=== PATIENT | female | born 1965 | race African-American/Black ===

== ENCOUNTER 2017-11-12 13:03 | Emergency (ER) | payer OTHER ==
[2017-11-12] MEDS ORDERED: Morphine 4 MG/ML VIAL ONE (13:36)
[2017-11-12] MEDS ORDERED: Ondansetron HCl/PF 4 MG/2 ML Vial ONE (13:36)
[2017-11-12 13:39] LABS: #Basophils 0.1 thou/uL (0.0-0.2); #Eosinphils 0.4 thou/uL (0.0-0.7); #Monocytes 0.3 thou/uL (0.11-0.59); #Neutrophils 3.3 thou/uL (1.40-6.50); %Basophils 1.3 % (0.0-1.0); %Lymphocytes 42.4 % (21.0-51.0); %Monocytes 4.6 % (0.0-10.0); %Neutrophils 46.7 % (42.0-75.0); Mean Corpuscular HGB CONC 33.9 g/dL (32.0-36.0); Mean Corpuscular Hemoglobin 30.5 pg (27.0-31.0); Mean Corpuscular Volume 90.1 fl (81.0-99.0); Mean Platelet Volume 7.4 fL (7.4-10.4); Platelet Count 287 thou/uL (130-400); RBC Distribution Width 11.7 % (11.5-14.5); Red Blood Cell (RBC) Count 4.59 mill/uL (4.20-5.40); White Blood Cell (WBC) Count 7.1 thou/uL (4.8-10.8)
[2017-11-12] MEDS ORDERED: Fentanyl 100 MCG/2 ML VIAL ONE (13:39)
[2017-11-12 13:43] LABS: Bilirubin Negative (Negative); Blood, Urine Negative (Negative); Clarity CLEAR (Clear); Glucose, Urine (Dipstick) 250 mg/dL (Negative); Leukocyte Negative (Negative); Nitrite Negative (Negative); Protein, Urine (Dipstick) Negative (Neg-Trace); Specific Gravity, Urine 1.012 (1.002-1.036); Urobilinogen 0.2 mg/dL (0.2-1.0); pH, Urine 7.5 (5.0-9.0)
[2017-11-12 14:02] LABS: ALT (SGPT) 23 U/L (8-55); AST (SGOT) 21 U/L (5-34); Albumin 4.5 g/dL (3.5-5.0); Alkaline Phosphatase 121 U/L (40-150); Anion Gap 12 mmol/L (10-20); BUN (Urea Nitrogen) 12 mg/dL (9.8-20.1); Bilirubin, Total 0.4 mg/dL (0.2-1.2); Calc. Creatinine Clearance 0 mL/min (70-130); Calcium 10.6 mg/dL (7.8-10.44); Carbon Dioxide 31 mmol/L (22-29); Chloride 99 mmol/L (98-107); Estimated GFR-MDRD 88; Globulin 3.6 g/dL (2.4-3.5); Glucose 252 mg/dL (70-105); Lipase 36 U/L (8-78); Potassium 3.1 mmol/L (3.5-5.1); Protein, Total 8.1 g/dL (6.0-8.3); Sodium 139 mmol/L (136-145)
--- NOTE | 2017-11-12 14:49 | CT ---
CT ABDOMEN AND PELVIS: Date: 11/12/17 PROVIDED CLINICAL HISTORY: Right flank pain. FINDINGS: Visualized lung bases are free of significant opacity. Calcified granuloma right lung base. Nonobstructing calcification inferior pole right kidney measuring about 4.0 mm. No additional urinary tract calculi are evident. No evidence for hydronephrosis. Solid abdominal organs are suboptimally e valuated without IV contrast but demonstrate an otherwise unremarkable unenhanced CT appearance. No bowel dilatation, inflammatory fat stranding, free fluid, or lymph node enlargement apparent. The appendix is not distinctly identified. The osseous structures demonstrate no concerning lytic or blastic lesions. Degenerative changes of th e symphysis and lower lumbar spine are seen. IMPRESSION: 4.0 mm nonobstructing right renal calculus. POS: KATHRINE
== END 2017-11-12 16:30 | disposition home or self-care (01) ==
LOC: ERS 13:03
DX: S39.012A Strain of muscle, fascia and tendon of lower back, initial encounter (principal); I67.1 Cerebral aneurysm, nonruptured; E11.9 Type 2 diabetes mellitus without complications; K21.9 Gastro-esophageal reflux disease without esophagitis; I10 Essential (primary) hypertension; Z79.899 Other long term (current) drug therapy; X58.XXXA Exposure to other specified factors, initial encounter
CPT/HCPCS: 36415; 74176; 80053; 81003; 83690; 85025; 96374; 96375; J2270; J2405; J3010